=== PATIENT | female | born 1975 | race Caucasian/White ===

== ENCOUNTER → 2017-06-28 | Outpatient (CLI) | payer OTHER ==
--- NOTE | 2017-07-02 07:26 | MM ---
Reason for exam: screening (asymptomatic). Last mammogram was performed 1 year and 1 month ago. History: Saline implants in both breasts, 2008. Breast lifts of both breasts, 2008. Physical Findings: A clinical breast exam by your physician is recommended on an annual basis and results should be correlated with mammographic findings. MG 3D Screen Mammo Imp/Cad Bilateral CC, MLO, and ID view(s) were taken. Prior study comparison: June 05, 2016, bilateral MG 3d screen mammo imp/cad. The breast tissue is heterogeneously dense. This may lower the sensitivity of mammography. Bilateral saline implants. No significant changes when compared with prior studies. ASSESSMENT: Negative, BI-RAD 1 RECOMMENDATION: Follow-up diagnostic mammogram of both breasts in 1 year.
== END | disposition home or self-care (01) ==
LOC: RADMAMWWP 09:04
PROVIDERS: ATTEND Obstetrics & Gynecology
DX: Z12.31 Encounter for screening mammogram for malignant neoplasm of breast (principal)
CPT/HCPCS: 77063; G0202

== ENCOUNTER → 2018-07-18 | Outpatient (CLI) | payer OTHER ==
--- NOTE | 2018-07-21 10:42 | MM ---
Reason for exam: screening (asymptomatic). Last mammogram was performed 1 year and 1 month ago. History: Saline implants in both breasts, 2008. Breast lifts of both breasts, 2008. Physical Findings: A clinical breast exam by your physician is recommended on an annual basis and results should be correlated with mammographic findings. MG 3D Screen Mammo Imp/Cad Bilateral CC, MLO, and ID view(s) were taken. Prior study comparison: June 28, 2017, bilateral MG 3d screen mammo imp/cad. June 05, 2016, bilateral MG 3d screen mammo imp/cad. The breast tissue is heterogeneously dense. This may lower the sensitivity of mammography. No suspicious abnormality. Bilateral saline implants. No significant changes when compared with prior studies. ASSESSMENT: Negative, BI-RAD 1 RECOMMENDATION: Routine screening mammogram of both breasts in 1 year.
== END | disposition home or self-care (01) ==
LOC: RADMAMWWP 13:46
PROVIDERS: ATTEND Obstetrics & Gynecology
DX: Z12.31 Encounter for screening mammogram for malignant neoplasm of breast (principal)
CPT/HCPCS: 77063; 77067

== ENCOUNTER → 2018-10-01 | Outpatient (CLI) | payer OTHER ==
--- NOTE | 2018-10-01 16:04 | MR ---
EXAMINATION TYPE: MR knee LT wo con DATE OF EXAM: 10/01/2018 COMPARISON: None HISTORY: Pain in left knee TECHNIQUE: Multiplanar, multisequence imaging of the left knee is performed without IV contrast. FINDINGS: MEDIAL MENISCUS: Anterior and posterior horns are intact without tear. LATERAL MENISCUS: Anterior and posterior horns are intact without tear. CRUCIATE LIGAMENTS: The anterior and posterior cruciate ligaments are intact and unremarkable. COLLATERAL LIGAMENTS: There is thickening at the medial collateral ligament with some associated ave a signal within the soft tissues surrounding the anterior aspect, possibly tendinosis or partial tear EXTENSOR MECHANISM: Visualized quadriceps and patellar tendons are intact. EFFUSION: No significant suprapatellar joint effusion. POPLITEAL CYST: No popliteal/hassan cyst. TRICOMPARTMENT SPACES: Maintained CARTILAGE: Sagittal images there is some linear low signal present within the patellar cartilage, ma y represent cleft BONE MARROW SIGNAL: No focal abnormal marrow signal is appreciated. OTHER: Subcutaneous edema present anterior to the patella IMPRESSION: There may be strain or tendinosis of the medial collateral ligament. Possible cleft in the patellar c artilage.
== END | disposition home or self-care (01) ==
LOC: RADMRIMAIN 14:35
PROVIDERS: ATTEND Orthopaedic Surgery
DX: M25.562 Pain in left knee (principal); M23.92 Unspecified internal derangement of left knee

== ENCOUNTER → 2019-09-08 | Outpatient (CLI) | payer OTHER ==
--- NOTE | 2019-09-09 11:02 | MM ---
Reason for exam: screening (asymptomatic). Last mammogram was performed 1 year and 2 months ago. History: Saline implants in both breasts, 2008. Breast lifts of both breasts, 2008. Physical Findings: A clinical breast exam by your physician is recommended on an annual basis and results should be correlated with mammographic findings. MG 3D Screen Mammo Imp/Cad Bilateral CC and MLO view(s) were taken. Prior study comparison: July 18, 2018, bilateral MG 3d screen mammo imp/cad. June 28, 2017, bilateral MG 3d screen mammo imp/cad. The breast tissue is heterogeneously dense. This may lower the sensitivity of mammography. Benign appearing bilateral calcifications. No significant changes when compared with prior studies. ASSESSMENT: Benign, BI-RAD 2 RECOMMENDATION: Routine screening mammogram of both breasts in 1 year.
== END | disposition home or self-care (01) ==
LOC: RADMAMWWP 12:53
PROVIDERS: ATTEND Obstetrics & Gynecology
DX: Z12.31 Encounter for screening mammogram for malignant neoplasm of breast (principal); Z98.82 Breast implant status
CPT/HCPCS: 77063; 77067

== ENCOUNTER → 2020-11-17 | Outpatient (CLI) | payer OTHER ==
[2020-11-17 11:24] LABS: T4, Free (Free Thyroxine) 1.1 ng/dL (0.80-1.80)
== END | disposition home or self-care (01) ==
LOC: LABWHC1 07:11
PROVIDERS: ATTEND Obstetrics & Gynecology Obstetrics
DX: N92.0 Excessive and frequent menstruation with regular cycle (principal); R68.82 Decreased libido
CPT/HCPCS: 36415; 84439; 84443

== ENCOUNTER → 2020-12-01 | Outpatient (CLI) | payer OTHER ==
--- NOTE | 2020-12-05 11:45 | MM ---
Reason for exam: screening (asymptomatic). Last mammogram was performed 1 year and 3 months ago. History: Saline implants in both breasts, 2008. Breast lifts of both breasts, 2008. Physical Findings: A clinical breast exam by your physician is recommended on an annual basis and results should be correlated with mammographic findings. MG 3D Screen Mammo Imp/Cad Bilateral CC and MLO view(s) were taken. Prior study comparison: September 08, 2019, bilateral MG 3d screen mammo imp/cad. July 18, 2018, bilateral MG 3d screen mammo imp/cad. There are scattered fibroglandular densities. Bilateral breast prothesis. No significant changes when compared with prior studies. ASSESSMENT: Benign, BI-RAD 2 RECOMMENDATION: Routine screening mammogram of both breasts in 1 year.
== END | disposition home or self-care (01) ==
LOC: RADMAMWWP 10:41
PROVIDERS: ATTEND Obstetrics & Gynecology Obstetrics
DX: Z12.31 Encounter for screening mammogram for malignant neoplasm of breast (principal)
CPT/HCPCS: 77063; 77067

== ENCOUNTER → 2021-12-21 | Outpatient (CLI) | payer OTHER ==
--- NOTE | 2021-12-25 09:49 | MM ---
Reason for exam: screening (asymptomatic). Last mammogram was performed 1 year and 1 month ago. History: Saline implants in both breasts, 2008. Breast lifts of both breasts, 2008. Physical Findings: A clinical breast exam by your physician is recommended on an annual basis and results should be correlated with mammographic findings. MG 3D Screen Mammo Imp/Cad Bilateral CC, MLO, and ID view(s) were taken. Prior study comparison: December 01, 2020, bilateral MG 3d screen mammo imp/cad. September 08, 2019, bilateral MG 3d screen mammo imp/cad. Previous mammotome biopsy in the right breast. Bilateral breast prothesis. No significant changes when compared with prior studies. ASSESSMENT: Benign, BI-RAD 2 RECOMMENDATION: Routine screening mammogram of both breasts in 1 year.
== END | disposition home or self-care (01) ==
LOC: RADMAMWWP 14:45
PROVIDERS: ATTEND Obstetrics & Gynecology Obstetrics
DX: Z12.31 Encounter for screening mammogram for malignant neoplasm of breast (principal)
CPT/HCPCS: 77063; 77067

== ENCOUNTER → 2023-02-08 | Outpatient (CLI) | payer OTHER ==
--- NOTE | 2023-02-11 10:44 | MM ---
Reason for Exam: Screening (asymptomatic). Last mammogram was performed 1 year(s) and 1 month(s) ago. Patient History: Menarche at age 13. First Full-Term at age 26. Currently using Hormonal Contraceptives, starting at age 46. 2007, Bilateral Implants. Risk Values: Xiomy 5 year model risk: 0.9%. NCI Lifetime model risk: 10.5%. Prior Study Comparison: 09/08/2019 Bilateral Screening Mammogram, [facility]. 12/01/2020 Bilateral Screening Mammogram, [facility]. 12/21/2021 Bilateral Screening Mammogram, [facility]. Tissue Density: There are scattered fibroglandular densities. Findings: Analyzed By CAD. Pattern appears symmetrical and stable. Bilateral breast prostheses are present. No significant interval change is evident. No suspicious groups of microcalcifications, spiculated or lobular masses, architectural distortion or other secondary signs of malignancy are mammographically apparent. Overall Assessment: Negative, BI-RAD 1 Management: Screening Mammogram of both breasts in 1 year. A negative mammogram report should not preclude additional follow up of suspicious palpable abnormalities. Patient should continue monthly self breast exam. A clinical breast exam by your physician is recommended on an annual basis and results should be correlated with mammographic findings. Electronically signed and approved by: Lino Charles D.O. Radiologis
== END | disposition home or self-care (01) ==
LOC: RADMAMWWP 09:40
PROVIDERS: ATTEND Obstetrics & Gynecology Obstetrics
DX: Z12.31 Encounter for screening mammogram for malignant neoplasm of breast (principal)
CPT/HCPCS: 77063; 77067

== ENCOUNTER → 2024-04-24 | Outpatient (CLI) | payer OTHER ==
--- NOTE | 2024-04-26 12:39 | MM ---
Reason for Exam: Screening (asymptomatic). Last mammogram was performed 1 year(s) and 3 month(s) ago. Patient History: Menarche at age 13. First Full-Term at age 26. Patient has history of breast feeding. Currently using Hormonal Contraceptives, starting at age 46. 2008, Bilateral Implants. Risk Values: Xiomy 5 year model risk: 1.0%. NCI Lifetime model risk: 10.3%. Prior Study Comparison: 12/01/2020 Bilateral Screening Mammogram, [facility]. 12/21/2021 Bilateral Screening Mammogram, [facility]. 02/08/2023 Bilateral MG 3D screen mammo imp/cad., [facility]. Tissue Density: There are scattered areas of fibroglandular density. Findings: Analyzed By CAD. Bilateral breast implants appear intact. Right breast: There is no suspicious group of microcalcifications or new suspicious mass. Left breast: There is no suspicious group of microcalcifications or new suspicious mass. Overall Assessment: Negative, BI-RAD 1 Management: Screening Mammogram of both breasts in [address] [facility] will attempt to contact patient to return for supplemental views and ultrasound if indicated. Patient should continue monthly self-breast exams. A clinical breast exam by your physician is recommended on an annual basis. This exam should not preclude additional follow-up of suspicious palpable abnormalities. Note on Xiomy scores and lifetime risk: 1. A Xiomy score greater than 3% is considered moderate risk. If this is the case, consider specialist referral to assess eligibility for a risk reducing agent. 2. If overall lifetime risk for the development of breast cancer is 20% or higher, the patient may qualify for future screening with alternating mammogram and breast MRI. Electronically signed and approved by: Baldemar Vincent DO
== END | disposition home or self-care (01) ==
LOC: RADMAMWWP 09:22
PROVIDERS: ATTEND Obstetrics & Gynecology Obstetrics
DX: Z12.31 Encounter for screening mammogram for malignant neoplasm of breast
CPT/HCPCS: 77063; 77067

== ENCOUNTER 2024-10-26 06:38 | Day surgery (SDC) | payer OTHER ==
[2024-10-26 07:05] VITALS: RESP 16; TEMP 98.1
[2024-10-26 08:16] VITALS: BP 126/67; PULSE 67
== END 2024-10-26 08:11 | disposition home or self-care (01) ==
LOC: CATHCVL 06:38
PROVIDERS: ATTEND Plastic Surgery
DX: Z01.818 Encounter for other preprocedural examination (principal); T85.42XA Displacement of breast prosthesis and implant, initial encounter; N62 Hypertrophy of breast; K21.9 Gastro-esophageal reflux disease without esophagitis; Z79.899 Other long term (current) drug therapy; Z86.73 Personal history of transient ischemic attack (TIA), and cerebral infarction without residual deficits; Z91.89 Other specified personal risk factors, not elsewhere classified; F41.9 Anxiety disorder, unspecified; E66.9 Obesity, unspecified; Z68.35 Body mass index [BMI] 35.0-35.9, adult
CPT/HCPCS: 81025